=== PATIENT | female | born 1925 | race African-American/Black ===

== ENCOUNTER 2016-12-29 08:45 | Day surgery (SDC) | payer OTHER ==
[2016-12-28 16:26] VITALS: BMI 37.1
--- NOTE | 2016-12-29 06:30 | HP ---
History & Physical Update - History History: No Change - Physical Physical: No Change - Assessment Assessment: No Change - Plan Plan: No Change
[~2016-12-29 08:45] MED LIST: CYCLOPENTOLATE HCL 1% OPHTH SOLN 2 ML BOTTLE OP SCH; MOXIFLOXACIN HCL 0.5% OPHTHALMIC 3 ML BOTTLE OP SCH; PHENYLEPHRINE 2.5% OPHTH SOLN 15 ML BOTTLE OP SCH; TROPICAMIDE 1% OPHTH SOLN 15 ML BOTTLE OP SCH
[2016-12-29 09:32] VITALS: BP 159/82; PULSE 96; TEMP 97.7
[2016-12-29] MEDS ORDERED: ACETAMINOPHEN 325 MG TABLET (FP) PO PRN (10:56)
[2016-12-29] MEDS ORDERED: ONDANSETRON 4 MG/2 ML VIAL IVPUSH PRN (10:56)
[2016-12-29] MEDS ORDERED: LACTATED RINGERS SOLUTION 1,000 ML IV SCH (11:00)
== END 2016-12-29 09:44 | disposition home or self-care (01) ==
LOC: JASU-SURG 08:45
PROVIDERS: ATTEND Ophthalmology
PROC: 08DK3ZZ Extraction of Left Lens, Percutaneous Approach (ICD-10-PCS; principal; 2016-12-29)
DX: Z53.8 Procedure and treatment not carried out for other reasons (principal)

== ENCOUNTER 2017-01-19 07:19 | Day surgery (SDC) | payer OTHER ==
[2017-01-15 12:55] VITALS: BMI 37.1
--- NOTE | 2017-01-19 06:21 | HP ---
History & Physical Update - History History: No Change - Physical Physical: No Change - Assessment Assessment: No Change - Plan Plan: No Change
[~2017-01-19 07:19] MED LIST changes: -CYCLOPENTOLATE HCL 1% OPHTH SOLN 2 ML BOTTLE OP SCH; -MOXIFLOXACIN HCL 0.5% OPHTHALMIC 3 ML BOTTLE OP SCH; -PHENYLEPHRINE 2.5% OPHTH SOLN 15 ML BOTTLE OP SCH; +TOBRAMYCIN/DEXAMETHASONE OPHTH. OINTMENT 1 TUBE TP ONE; -TROPICAMIDE 1% OPHTH SOLN 15 ML BOTTLE OP SCH
[2017-01-19] MEDS ORDERED: LIDOCAINE HCL/PF 1% SDV 5ML VIAL ONE (07:24)
[2017-01-19] MEDS ORDERED: LIDOCAINE HCL/PF 2% SDV 5ML VIAL ONE (07:25)
[2017-01-19] MEDS ORDERED: TETRACAINE 0.5% OPHTH SOLN 2 ML BOTTLE ONE (07:25)
[2017-01-19] MEDS ORDERED: BUPIVACAINE HCL/PF 0.75% 10 ML VIAL ONE (07:25)
[2017-01-19] MEDS: MOXIFLOXACIN HCL 0.5% OPHTHALMIC 3 ML BOTTLE OP SCH ×3 (07:45→08:14)
[2017-01-19] MEDS: PHENYLEPHRINE 2.5% OPHTH SOLN 15 ML BOTTLE OP SCH ×3 (07:45→08:14)
[2017-01-19] MEDS: CYCLOPENTOLATE HCL 1% OPHTH SOLN 2 ML BOTTLE OP SCH ×3 (07:45→08:13)
[2017-01-19] MEDS: TROPICAMIDE 1% OPHTH SOLN 15 ML BOTTLE OP SCH ×3 (07:45→08:14)
[2017-01-19] MEDS ORDERED: TETRACAINE 0.5% OPHTH SOLN 2 ML BOTTLE OS ONE (09:24)
[2017-01-19] MEDS ORDERED: BUPIVACAINE HCL/PF 0.75% 10 ML VIAL RB ONE (09:30)
[2017-01-19] MEDS ORDERED: LIDOCAINE HCL/PF 2% SDV 5ML VIAL INF ONE (09:30)
[2017-01-19] MEDS ORDERED: POVIDONE-IODINE 5% OPHTHALMIC PREP 30 ML SOLUTION OS ONE (09:33)
[2017-01-19] MEDS ORDERED: LIDOCAINE HCL 1% PRESERVATIVE FREE - 30ML VIAL IO ONE (09:40)
[2017-01-19] MEDS ORDERED: CHONDROITIN SU A/HYALUR SOD 1 KIT IO ONE (09:40)
[2017-01-19] MEDS ORDERED: BSS (NA/CA/MG/K) BALANCED SALT SOLUTION OPHTH SOLN 15 ML BOTTLE OS ONE (09:40)
[2017-01-19] MEDS ORDERED: TRYPAN BLUE 0.5 ML DISP.SYRIN IO ONE (09:41)
[2017-01-19] MEDS ORDERED: EPINEPHrine/PF 1 MG/1 ML (1:1,000) AMPULE SQ ONE (09:45)
[2017-01-19] MEDS ORDERED: TOBRAMYCIN/DEXAMETHASONE OPHTH. OINTMENT 1 TUBE TP ONE (09:59)
[2017-01-19 12:56] VITALS: BP 145/80; PULSE 88; TEMP 97.8
--- NOTE | 2017-01-20 06:33 | OP ---
DATE OF OPERATION: 01/19/2017 SURGEON: Major Bar MD PREOPERATIVE DIAGNOSIS: Cataract, left eye. OPERATION: Phacoemulsification and intraocular lens implantation, left eye. POSTOPERATIVE DIAGNOSIS: Cataract, left eye. ANESTHESIA: Local with intravenous sedation. COMPLICATIONS: None. BLOOD LOSS: None. SPECIMEN: None. BRIEF HISTORY: The patient is an 89-year-old woman with a past medical history of hypertension, who presented with decreased vision in the left eye down to 20/40 due to dense 2+ nuclear sclerotic lens. 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 DESCRIPTION OF PROCEDURE: The patient was brought to the operating room and administered retrobulbar block after receiving intravenous sedation. She was then prepped and draped in the usual sterile fashion. Then, an eyelid speculum was inserted in the left eye, the paracentesis was made, and the anterior chamber was inflated with nonpreserved lidocaine. At this point, due to the poor visualization due to the corneal scar, it was determined to use trypan blue dye in order to stain the anterior capsule. Air, trypan blue dye, and Viscoat were injected into the eye. A groove was made in the superotemporal clear cornea which was tunneled forward with a crescent blade. The anterior chamber was entered with a 2.75 keratome. The cystotome was used to make an incision at the center of the capsule, and a continuous curvilinear capsulorrhexis was created. The lens was hydrodissected until it was found to rotate freely within the capsular bag. Phacoemulsification was then used to remove the lens in its entirety. Irrigation and aspiration were used to remove residual cortical material. The anterior chamber and capsular bag were reinflated with Provisc, and a 20.5 diopter [id number] AcrySof intraocular lens was injected into the capsular bag using the [place] injector. The lens was dialed into place using the [employer] Technologiesey hook. Irrigation and aspiration were used to remove residual viscoelastic. The wound was stromally hydrated until it was found to be watertight and the eye was in an appropriate pressure. The eyelid speculum was removed from the eye and TobraDex ointment and a patch and shield were placed over the left eye. The patient was transferred to the recovery room in stable condition and will follow up tomorrow. Abhijit [id number] MTDD
== END 2017-01-19 12:00 | disposition home or self-care (01) ==
LOC: JASU-SURG 07:19
PROVIDERS: ATTEND Ophthalmology
PROC: 08RK3JZ Replacement of Left Lens with Synthetic Substitute, Percutaneous Approach (ICD-10-PCS; principal; 2017-01-19 09:00)
DX: H25.12 Age-related nuclear cataract, left eye (principal); H17.9 Unspecified corneal scar and opacity

== ENCOUNTER 2017-03-11 00:58 | Inpatient (IN) | payer OTHER ==
[2017-03-11 01:24] VITALS: BMI 36.0
--- NOTE | 2017-03-11 02:04 | PDOC ---
History of Present Illness - General History Source: Patient <Jaycob Garcia - Last Filed: 03/11/17 06:58> - General History Source: Patient Exam Limitations: No Limitations - History of Present Illness Initial Comments: 03/11/17 02:20 The patient is a 89 year old female with significant past medical history of COPD, hypertension, diabetes who presents to the ED for elevated blood pressure. Patient reports she normally checks her blood pressure at home and within the past week she noted her blood pressure has been trending upwards from her baseline, which is usually in the 130s systolic. Today she noted her blood pressure to be in the 190s. Patient reports a sensation of a pounding pressure in her head, lightheadedness, and left arm discomfort. Denies numbness or tingling. Denies diaphoresis, chest pain, palpitations, SOB, jaw pain, nausea , or vomiting. At time of evaluation, patient states her symptoms have resolved. She also has complaints of frequency, but no urgency, dysuria, or hematuria. States her PMD was made aware of her urinary complaint and she was recently prescribed antibiotics. The patient denies fever, chills, cough, abdominal pain, and diarrhea. Allergies: NKDA Social History: No alcohol, tobacco, or drug use reported. Past Surgical History: cholecystectomy PCP: Dr. Amol Jaramillo <Tatiana Calles - Last Filed: 03/11/17 07:03> - General Chief Complaint: Blood Pressure Problem Stated Complaint: BLOOD PRESSURE PROBLEM Time Seen by Provider: 03/11/17 01:30 Past History - Past Medical History COPD: Yes Diabetes: Yes HTN: Yes Thyroid Disease: Yes - Surgical History Cholecystectomy: Yes - Psycho/Social/Smoking Cessation Hx Suicidal Ideation: No Smoking History: Never smoked Have you smoked in the past 12 months: No If you are a former smoker, when did you quit?: 30YRS AGO Information on smoking cessation initiated: No Hx Alcohol Use: No Drug/Substance Use Hx: No Substance Use Type: None Hx Substance Use Treatment: No <RadhaJaycob - Last Filed: 03/11/17 06:58> <Tatiana Calles - Last Filed: 03/11/17 07:03> - Past Medical History Allergies/Adverse Reactions: Allergies Allergy/AdvReac Type Severity Reaction Status Date / Time No Known Allergies Allergy Verified 12/28/16 16:37 Home Medications: Ambulatory Orders Aspirin Coated [Ecotrin -] 81 mg PO DAILY 12/28/16 Atorvastatin Ca [Lipitor] 40 mg PO HS 12/28/16 Levothyroxine [Synthroid -] 25 mcg PO DAILY 12/28/16 Meloxicam [Mobic (Nf) -] 15 mg PO DAILY 12/28/16 Valsartan 320 mg PO DAILY 12/28/16 Hydrochlorothiazide 25 mg PO DAILY 01/19/17 Review of Systems - Review of Systems Able to Perform ROS?: Yes Comments:: 03/11/17 02:20 CONSTITUTIONAL: Absent: fever, no chills, no fatigue EYES: Absent: visual changes ENT: Absent: ear pain, no sore throat CARDIOVASCULAR: +lightheadedness Absent: chest pain, no palpitations RESPIRATORY: Absent: cough, no SOB GI: Absent: abdominal pain, no nausea, no vomiting, no constipation, no diarrhea GENITOURINARY: +frequency Absent: dysuria, no hematuria MUSCULOSKELETAL: +left arm discomfort Absent: back pain, no arthralgia, no myalgia SKIN: Absent: rash NEURO: +headache <Tatiana Calles - Last Filed: 03/11/17 07:03> *Physical Exam - Vital Signs Last Vital Signs Temp Pulse Resp BP Pulse Ox 98.2 F 102 H 20 177/75 96 03/11/17 01:22 03/11/17 01:22 03/11/17 01:22 03/11/17 01:22 03/11/17 01:22 <Jaycob Garcia - Last Filed: 03/11/17 06:58> - Vital Signs Last Vital Signs Temp Pulse Resp BP Pulse Ox 98.2 F 102 H 20 177/75 96 03/11/17 01:22 03/11/17 01:22 03/11/17 01:22 03/11/17 01:22 03/11/17 01:22 - Physical Exam Comments: 03/11/17 02:20 GENERAL: Well-appearing, well-nourished. No apparent distress. HEENT: Normocephalic, atraumatic. PERRL, EOM intact. CARDIOVASCULAR: Normal S1, S2. Regular rate and rhythm. PULMONARY: Clear to auscultation bilaterally. ABDOMEN: Soft, non-distended, non-tender. EXTREMITIES: Normal ROM in all four extremities. No gross deformities. SKIN: Warm, dry. No rash NEUROLOGICAL: No focal neurological deficits. 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 The sulcal pattern is normal for the patient's age. Mild small vessel ischemic changes are noted. There is no bleed, mass, extra-axial fluid collection or mass effect. No skull fracture or skull lesion is identified. The visualized paranasal sinuses and mastoid air cells are clear. IMPRESSION: No evidence of acute pathology. <Tatiana Calles - Last Filed: 03/11/17 07:03> Medical Decision Making - Medical Decision Making 03/11/17 07:01 Dr. Garcia: The scribe's documentation has been prepared under my direction and personally reviewed by me in its entirery. I confirm that the note above accurately reflects all work, treatment, procedures, and medical decision making performed by me. <Jaycob Garcia - Last Filed: 03/11/17 06:58> - Medical Decision Making 03/11/17 05:[address] Sachin August who is covering for Dr. Amol Jaramillo (via answering service) Awaiting call back As per answering service, was told that Dr. August is on-call for Dr. Jaramillo. 03/11/17 05:59 Second call placed to Dr. August (via answering service) and patient's case was discussed. Dr. Auguts states that Dr. Root and Dr. Kim are covering for Dr. Jaramillo. 03/11/17 06:[address] Karrie Kim who is covering for Dr. Jaramillo (via answering service) Awaiting call back 03/11/17 06:31 Second call placed to Dr. Kim (via answering service) Awaiting call back 03/11/17 06:58 Patient's case discussed with Dr. Kim <Tatiana Calles - Last Filed: 03/11/17 07:03> *DC/Admit/Observation/Transfer - Discharge Dispostion Admit: Yes <Jaycob Garcia - Last Filed: 03/11/17 06:58> - Attestations Scribe Attestion: 03/11/17 02:21 Documentation prepared by Tatiana Calles, acting as medical staff assistant for Jaycob Garcia MD/DO. <Tatiana Calles - Last Filed: 03/11/17 07:03> Diagnosis at time of Disposition: Hyponatremia, Hypochloremia - Discharge Dispostion Condition at time of disposition: Stable - Referrals Referrals: Amol Jaramillo MD [Primary Care Provider] -
[2017-03-11 03:06] LABS: BASOPHIL 0.9 % (0-2.0); EOSINOPHIL 5.9 % (0-4.5); MCH 27.2 pg (25.7-33.7); MCHC 33.1 g/dl (32.0-36.0); MEAN CELL VOLUME 82.1 fl (80-96); MEAN PLT VOLUME 6.6 fl (7.5-11.1); PLATELET COUNT 208 K/MM3 (134-434); RDW 14.5 % (11.6-15.6); WHITE BLOOD COUNT 9.8 K/mm3 (4.0-10.0)
[2017-03-11 03:07] LABS: URINE APPEARANCE CLEAR; URINE BILIRUBIN NEGATIVE (NEGATIVE); URINE BLOOD NEGATIVE (NEGATIVE); URINE COLOR COLORLESS; URINE GLUCOSE (UA) NEGATIVE (NEGATIVE); URINE KETONE NEGATIVE (NEGATIVE); URINE LEUK ESTERASE NEGATIVE (NEGATIVE); URINE NITRITE NEGATIVE (NEGATIVE); URINE PROTEIN NEGATIVE (NEGATIVE); URINE UROBILINOGEN NEGATIVE E.U./dl (0.2-1.0)
[2017-03-11 03:22] LABS: INR 1.04 (0.82-1.09); PROTHROMBIN TIME (PATIENT) 11.4 SEC (9.98-11.88)
[2017-03-11 03:31] LABS: ALK PHOS 132 U/L (45-117); ANION GAP 5 (8-16); BILIRUBIN,TOTAL 0.5 mg/dL (0.2-1.0); CALCIUM 9.8 mg/dL (8.5-10.1); CO2 31 mmol/L (21-32); CREATININE 1.2 mg/dL (0.55-1.02); GLUCOSE,RANDOM 109 mg/dL (74-106); MAGNESIUM 1.9 mg/dL (1.8-2.4); SGOT/AST 23 U/L (15-37); SGPT/ALT 25 U/L (12-78); TOT PROT 7.8 g/dl (6.4-8.2)
[2017-03-11 03:33] LABS: TROPONIN I < 0.02 ng/ml (0.00-0.05)
[2017-03-11] MEDS ORDERED: SODIUM CHLORIDE 500 ML IV STA (06:26)
[2017-03-11 08:33] LABS: ANION GAP 10 (8-16); CALCIUM 9.6 mg/dL (8.5-10.1); CO2 26 mmol/L (21-32); GLUCOSE,RANDOM 103 mg/dL (74-106)
[2017-03-11 09:36] LABS: THYROID STIMULATING HORMONE 4.06 uIU/ml (0.358-3.74)
--- NOTE | 2017-03-11 09:55 | HP ---
Admitting History and Physical - Primary Care Physician PCP: Amol Jaramillo - Admission Chief Complaint: high BP History of Present Illness: ER HISTORY - History of Present Illness Initial Comments: 03/11/17 02:20 The patient is a 89 year old female with significant past medical history of COPD, hypertension, diabetes who presents to the ED for elevated blood pressure. Patient reports she normally checks her blood pressure at home and within the past week she noted her blood pressure has been trending upwards from her baseline, which is usually in the 130s systolic. Today she noted her blood pressure to be in the 190s. Patient reports a sensation of a pounding pressure in her head, lightheadedness, and left arm discomfort. Denies numbness or tingling. Denies diaphoresis, chest pain, palpitations, SOB, jaw pain, nausea , or vomiting. At time of evaluation, patient states her symptoms have resolved. She also has complaints of frequency, but no urgency, dysuria, or hematuria. States her PMD was made aware of her urinary complaint and she was recently prescribed antibiotics. The patient denies fever, chills, cough, abdominal pain, and diarrhea. Allergies: NKDA Social History: No alcohol, tobacco, or drug use reported. Past Surgical History: cholecystectomy PCP: Dr. Amol Jaramillo Pt examined by me in ER admitted for elevated BP-- her meds were recently changed by her PMD last month. C/O headaches and has been checking her BP at home-- elevated. Also had difficulty urinating and felt weak-- she called her PMD two days ago and he prescribed antibiotics presuming it to be UTI. No chest pain has COPD and uses O2 sometimes at home. Admits to drinking 5 - 6 bottles of 16 ounce water daily today feels well. History Source: Patient Limitations to Obtaining History: No Limitations - Past Medical History Cardiovascular: Yes: HTN Pulmonary: Yes: COPD Endocrine: Yes: Diabetes Mellitus - Smoking History Smoking history: Never smoked Have you smoked in the past 12 months: No If you are a former smoker, when did you quit?: 30YRS AGO - Alcohol/Substance Use Hx Alcohol Use: No Home Medications - Allergies Allergies/Adverse Reactions: Allergies Allergy/AdvReac Type Severity Reaction Status Date / Time No Known Allergies Allergy Verified 12/28/16 16:37 - Home Medications Home Medications: Ambulatory Orders Aspirin Coated [Ecotrin -] 81 mg PO DAILY 12/28/16 Atorvastatin Ca [Lipitor] 40 mg PO HS 12/28/16 Levothyroxine [Synthroid -] 25 mcg PO DAILY 12/28/16 Meloxicam [Mobic (Nf) -] 15 mg PO DAILY 12/28/16 Valsartan 320 mg PO DAILY 12/28/16 Hydrochlorothiazide 25 mg PO DAILY 01/19/17 Review of Systems - Review of Systems Constitutional: reports: Weakness. denies: Chills, Fever, Lethargy, Loss of Appetite Gastrointestinal: denies: Abdominal Pain Genitourinary: reports: Frequency. denies: Burning, Discharge, Dysuria, Flank Pain Neurological: reports: Headache. denies: Confusion, Dizziness Physical Examination Vital Signs: Vital Signs Temperature 97.9 F 03/11/17 07:41 Pulse Rate 83 03/11/17 07:41 Respiratory Rate 20 03/11/17 07:41 Blood Pressure 173/83 03/11/17 07:41 O2 Sat by Pulse Oximetry (%) 97 03/11/17 07:41 Constitutional: Yes: No Distress, Calm Cardiovascular: Yes: Regular Rate and Rhythm Respiratory: Yes: Diminished, Rales Gastrointestinal: Yes: Normal Bowel Sounds, Soft. No: Distention, Tenderness Edema: Yes Edema: LLE: 1+, RLE: 1+ Psychiatric: Yes: Alert, Oriented Labs: CBC, BMP 03/11/17 07:54 Imaging - Results Chest X-ray: Image Reviewed (no infiltrates or congestion) EKG: Image Reviewed (NSR) Problem List - Problems (1) Hypochloremia Code(s): E87.8 - OTH DISORDERS OF ELECTROLYTE AND FLUID BALANCE, NEC (2) Hyponatremia Code(s): E87.1 - HYPO-OSMOLALITY AND HYPONATREMIA (3) Uncontrolled hypertension Code(s): I10 - ESSENTIAL (PRIMARY) HYPERTENSION Assessment/Plan PLAN Sodium low due to hypervolemia fluid restriction check urine osmolarity check TSH , free T 4 repeat Sodium renal consult Monitor BP-- continue with meds. will adjust accordingly DVT prophylaxis-- Heparin sc
[2017-03-11] MEDS: ASPIRIN COATED 81 MG TABLET.EC PO SCH (10:43)
[2017-03-11] MEDS: VALSARTAN 160 MG TABLET (UD) PO SCH (10:43)
[2017-03-11] MEDS: LEVOTHYROXINE NA 25 MCG TABLET (FP) PO SCH (10:44)
[2017-03-11] MEDS: NIFEdipine E.R. 30 MG TABLET (FP) PO SCH (11:07)
--- NOTE | 2017-03-11 12:24 | EKG ---
Test Reason : Blood Pressure : / mmHG Vent. Rate : 068 BPM Atrial Rate : 068 BPM P-R Int : 166 ms QRS Dur : 094 ms QT Int : 388 ms P-R-T Axes : 054 007 047 degrees QTc Int : 412 ms NORMAL SINUS RHYTHM NORMAL ECG NO PREVIOUS ECGS AVAILABLE Confirmed by MELVIN PAULA MD ([id number]) on 03/11/2017 12:24:19 PM Referred By: Confirmed By:MELVIN PAULA MD
--- NOTE | 2017-03-11 21:59 | CONSULT ---
Consult Consult Specialty:: Nephrology Reason for Consultation:: HTN and hyponatremia - History of Present Illness Chief Complaint: presented for elevated blood pressure History of Present Illness: Pt is an 89 year old female with pmhx of HTN, COPD and DM who presents to the ER with elevated blood pressure. She says she checks her blood pressure regularly and it usually runs in velma 130s systolic. She was getting readings in the 190s and she came in. She did feel palpitations and headache. She was found to be hyponatremic and I was called to evaluate her. I saw her earlier today in the ER. At the time she said she felt better. She says she does drink "alot" of water but could not quantify. She had dysuria and was given antibiotics but does not know the name. Pt is on meloxicam and HCTZ. - History Source History Provided By: Patient, Medical Record - Past Medical History Cardio/Vascular: Yes: HTN Pulmonary: Yes: COPD Endocrine: Yes: Diabetes Mellitus - Alcohol/Substance Use Hx Alcohol Use: No - Smoking History Smoking history: Never smoked Have you smoked in the past 12 months: No If you are a former smoker, when did you quit?: 30YRS AGO Home Medications - Allergies Allergies/Adverse Reactions: Allergies Allergy/AdvReac Type Severity Reaction Status Date / Time No Known Allergies Allergy Verified 12/28/16 16:37 - Home Medications Home Medications: Ambulatory Orders Aspirin Coated [Ecotrin -] 81 mg PO DAILY 12/28/16 Atorvastatin Ca [Lipitor] 40 mg PO HS 12/28/16 Levothyroxine [Synthroid -] 25 mcg PO DAILY 12/28/16 Meloxicam [Mobic (Nf) -] 15 mg PO DAILY 12/28/16 Valsartan 320 mg PO DAILY 12/28/16 Hydrochlorothiazide 25 mg PO DAILY 01/19/17 Family Disease History - Family Disease History Family History: Denies Review of Systems - Review of Systems Constitutional: reports: Malaise Eyes: reports: No Symptoms HENT: reports: No Symptoms Neck: reports: No Symptoms Cardiovascular: reports: Other (elevated blood pressure) Respiratory: reports: No Symptoms Gastrointestinal: reports: No Symptoms Genitourinary: reports: Dysuria Musculoskeletal: reports: No Symptoms Integumentary: reports: No Symptoms Neurological: reports: Headache Endocrine: reports: No Symptoms Hematology/Lymphatic: reports: No Symptoms Physical Exam Vital Signs: Vital Signs Temperature 97.6 F 03/11/17 18:00 Pulse Rate 94 H 03/11/17 18:00 Respiratory Rate 20 03/11/17 18:00 Blood Pressure 163/94 03/11/17 18:00 O2 Sat by Pulse Oximetry (%) 97 03/11/17 10:46 Constitutional: Yes: Calm Eyes: Yes: Conjunctiva Clear HENT: Yes: Atraumatic Neck: Yes: Supple Cardiovascular: Yes: S1, S2 Respiratory: Yes: CTA Bilaterally Gastrointestinal: Yes: Normal Bowel Sounds, Soft Renal/: Yes: WNL Musculoskeletal: Yes: WNL Edema: Yes Edema: LLE: 1+, RLE: 1+ Neurological: Yes: Oriented Psychiatric: Yes: Oriented Labs: CBC, BMP 03/11/17 07:54 Laboratory Tests 03/11/17 03/11/17 03/11/17 02:59 02:59 02:59 WBC 9.8 Hgb 12.2 Plt Count 208 Sodium 125 L Potassium 4.9 Chloride 89 L Carbon Dioxide 31 Anion Gap 5 L BUN 28 H Creatinine 1.2 H Random Glucose 109 H Alkaline Phosphatase 132 H Urine Color Colorless Urine Appearance Clear Urine pH 5.0 Ur Specific Benedict <= 1.005 Urine Protein Negative Urine Glucose (UA) Negative Urine Ketones Negative Urine Blood Negative Urine Nitrite Negative Urine Bilirubin Negative Urine Urobilinogen Negative Ur Leukocyte Esterase Negative 03/11/17 07:54 WBC Hgb Plt Count Sodium 129 L Potassium 4.4 Chloride 93 L Carbon Dioxide 26 Anion Gap 10 BUN 25 H Creatinine 1.0 Random Glucose Alkaline Phosphatase Urine Color Urine Appearance Urine pH Ur Specific Benedict Urine Protein Urine Glucose (UA) Urine Ketones Urine Blood Urine Nitrite Urine Bilirubin Urine Urobilinogen Ur Leukocyte Esterase Imaging - Results Chest X-ray: Report Reviewed Cat Scan: Report Reviewed Problem List - Problems (1) Hyponatremia Code(s): E87.1 - HYPO-OSMOLALITY AND HYPONATREMIA (2) Uncontrolled hypertension Code(s): I10 - ESSENTIAL (PRIMARY) HYPERTENSION (3) Diabetes mellitus Code(s): E11.9 - TYPE 2 DIABETES MELLITUS WITHOUT COMPLICATIONS (4) COPD (chronic obstructive pulmonary disease) Code(s): J44.9 - CHRONIC OBSTRUCTIVE PULMONARY DISEASE, UNSPECIFIED Assessment/Plan Current Medications Generic Name Dose Route Start Last Admin Trade Name Freq PRN Reason Stop Dose Admin Aspirin 81 mg 03/11/17 10:00 03/11/17 10:43 Ecotrin - PO 81 mg DAILY KENNETH Administration Atorvastatin Calcium 40 mg 03/11/17 22:00 Lipitor - PO HS KENNETH Levothyroxine Sodium 25 mcg 03/11/17 10:00 03/11/17 10:44 Synthroid - PO 25 mcg DAILY@0700 KENNETH Administration Nifedipine 30 mg 03/11/17 11:00 03/11/17 11:07 Procardia Xl - PO 30 mg DAILY KENNETH Administration Valsartan 320 mg 03/11/17 10:00 03/11/17 10:43 Diovan - PO 320 mg DAILY KENNETH Administration Selected Entries 03/11/17 03/11/17 03/11/17 10:46 12:20 14:53 Blood Pressure 159/79 161/82 151/82 03/11/17 18:00 Blood Pressure 163/94 Impression 1. HTN 2. hyponatremia 3. DM 4. hypothyroidism 5. COPD 6. hyperlipidemia 7. azotemia improving Plan - recommend stopping hctz and meloxicam. The thiazide can contribute to the hyponatremia and the meloxicam to the htn - cont valsartan - cont nifedpine and titrate up as tolerated - avoid nsaids - sodium is improving - repeat bmp in am - check plasma and urine osm - check tsh and cortisol - will follow pt Dr Hernandes
[2017-03-11] MEDS: ATORVASTATIN CA 40 MG TABLET (FP) PO SCH (23:10)
[2017-03-12] MEDS: LEVOTHYROXINE NA 25 MCG TABLET (FP) PO SCH (06:50)
[2017-03-12 07:55] LABS: MCH 27.3 pg (25.7-33.7); MCHC 33.5 g/dl (32.0-36.0); MEAN CELL VOLUME 81.6 fl (80-96); MEAN PLT VOLUME 6.7 fl (7.5-11.1); PLATELET COUNT 183 K/MM3 (134-434); RDW 14.6 % (11.6-15.6); WHITE BLOOD COUNT 8.4 K/mm3 (4.0-10.0)
[2017-03-12 08:06] LABS: CALCIUM 9.6 mg/dL (8.5-10.1)
[2017-03-12 08:20] LABS: ALBUMIN 3.6 g/dl (3.4-5.0); ALK PHOS 122 U/L (45-117); ANION GAP 8 (8-16); BILIRUBIN,TOTAL 0.6 mg/dL (0.2-1.0); CO2 28 mmol/L (21-32); GLUCOSE,RANDOM 91 mg/dL (74-106); SGOT/AST 22 U/L (15-37); SGPT/ALT 21 U/L (12-78); TOT PROT 6.9 g/dl (6.4-8.2)
--- NOTE | 2017-03-12 08:54 | DS ---
Physical Examination Vital Signs: Vital Signs Temperature 98 F 03/12/17 07:00 Pulse Rate 91 H 03/12/17 07:00 Respiratory Rate 18 03/12/17 07:00 Blood Pressure 148/90 03/12/17 07:00 O2 Sat by Pulse Oximetry (%) 97 03/11/17 21:00 Labs: CBC, BMP 03/12/17 06:25 03/12/17 06:25 <Nayely Root - Last Filed: 03/12/17 08:54> Vital Signs: Vital Signs Temperature 98 F 03/12/17 07:00 Pulse Rate 91 H 03/12/17 07:00 Respiratory Rate 18 03/12/17 07:00 Blood Pressure 148/90 03/12/17 07:00 O2 Sat by Pulse Oximetry (%) 97 03/11/17 21:00 Findings/Remarks: Patient seen and examined by me. Chart reviewed. Labs: CBC, BMP 03/12/17 06:25 03/12/17 06:25 <Oxana Francois - Last Filed: 03/12/17 10:19> Discharge Summary Reason For Visit: HYPONATREMIA/HYPOCHOLREMIA Current Active Problems COPD (chronic obstructive pulmonary disease) (Acute) Diabetes mellitus (Acute) Hypochloremia (Acute) Hyponatremia (Acute) Uncontrolled hypertension (Acute) - Home Medications Comprehensive Discharge Medication List: Ambulatory Orders Aspirin Coated [Ecotrin -] 81 mg PO DAILY 12/28/16 Atorvastatin Ca [Lipitor] 40 mg PO HS 12/28/16 Levothyroxine [Synthroid -] 25 mcg PO DAILY 12/28/16 Valsartan 320 mg PO DAILY 12/28/16 Nifedipine ER [Procardia XL -] 30 mg PO DAILY #30 amp 03/12/17 <Nayely Root - Last Filed: 03/12/17 08:54> Current Active Problems COPD (chronic obstructive pulmonary disease) (Acute) Diabetes mellitus (Acute) Hypochloremia (Acute) Hyponatremia (Acute) Uncontrolled hypertension (Acute) Hospital Course: Documentation prepared by Oxana Francois, acting as a clinical medical assistant for Nayely Root MD - Home Medications Comprehensive Discharge Medication List: Ambulatory Orders Aspirin Coated [Ecotrin -] 81 mg PO DAILY 12/28/16 Atorvastatin Ca [Lipitor] 40 mg PO HS 12/28/16 Levothyroxine [Synthroid -] 25 mcg PO DAILY 12/28/16 Valsartan 320 mg PO DAILY 12/28/16 Nifedipine ER [Procardia XL -] 30 mg PO DAILY #30 amp 03/12/17 <Oxana Francois - Last Filed: 03/12/17 10:19> Condition: Stable - Instructions Referrals: Amol Jaramillo MD [Primary Care Provider] -
[2017-03-12] MEDS: NIFEdipine E.R. 30 MG TABLET (FP) PO SCH (10:20)
[2017-03-12] MEDS: VALSARTAN 160 MG TABLET (UD) PO SCH (10:20)
[2017-03-12] MEDS: ASPIRIN COATED 81 MG TABLET.EC PO SCH (10:21)
[2017-03-12] MEDS ORDERED: NIFEdipine E.R. 30 MG TABLET (FP) PO SCH (11:04)
--- NOTE | 2017-03-12 11:04 | PN ---
Progress Note (short form) - Note Progress Note: SUBJECTIVE: Patient seen and examined. Chart reviewed. Feels better. No complaints today. OBJECTIVE: Vital Signs 03/12/17 03/12/17 07:00 10:00 Temperature 98 F Pulse Rate 91 H 80 Respiratory 18 18 Rate Blood Pressure 148/90 170/101 Intake & Output 03/11/17 03/12/17 03/12/17 23:59 07:59 15:59 Intake Total 0 0 Balance 0 0 Intake: IV 0 0 rac 0 0 Other: Voiding Method Toilet Toilet Active Medications Aspirin (Ecotrin -) 81 mg PO DAILY [facility] Last Admin: 03/12/17 10:21 Dose: 81 mg Atorvastatin Calcium (Lipitor -) 40 mg PO HS [facility] Last Admin: 03/11/17 23:10 Dose: 40 mg Levothyroxine Sodium (Synthroid -) 25 mcg PO DAILY@0700 [facility] Last Admin: 03/12/17 06:50 Dose: 25 mcg Nifedipine (Procardia Xl -) 60 mg PO DAILY [facility] Valsartan (Diovan -) 320 mg PO DAILY [facility] Last Admin: 03/12/17 10:20 Dose: 320 mg CBC, BMP 03/12/17 06:25 03/12/17 06:25 Laboratory Results - last 24 hr 03/11/17 03/12/17 03/12/17 20:02 00:59 00:59 WBC RBC Hgb Hct MCV MCHC RDW Plt Count MPV Sodium Potassium Chloride Carbon Dioxide Anion Gap BUN Creatinine Creat Clearance w eGFR POC Glucometer Random Glucose Calcium Total Bilirubin AST ALT Alkaline Phosphatase Total Protein Albumin TSH Free T4 1.06 Urine Osmolality 265 L Ur Random Sodium 40 Ur Random Potassium 22.7 Ur Random Chloride 44 03/12/17 03/12/17 03/12/17 06:25 06:25 06:51 WBC 8.4 RBC 4.34 Hgb 11.9 Hct 35.4 MCV 81.6 MCHC 33.5 RDW 14.6 Plt Count 183 MPV 6.7 L Sodium 130 L Potassium 4.3 Chloride 94 L Carbon Dioxide 28 Anion Gap 8 BUN 25 H Creatinine 1.0 Creat Clearance w eGFR 52.20 POC Glucometer 99 Random Glucose 91 Calcium 9.6 Total Bilirubin 0.6 AST 22 ALT 21 Alkaline Phosphatase 122 H Total Protein 6.9 Albumin 3.6 TSH 3.40 D Free T4 Urine Osmolality Ur Random Sodium Ur Random Potassium Ur Random Chloride PHYSICAL EXAMINATION: Constitutional: Yes: No Distress, Calm Cardiovascular: Yes: Regular Rate and Rhythm Respiratory: Yes: Diminished at bases. Gastrointestinal: Yes: Normal Bowel Sounds, Soft. No: Distention, Tenderness Edema: Yes Edema: LLE: 1+, RLE: 1+ Psychiatric: Yes: Alert, Oriented Problem List - Problems (1) Hypochloremia Code(s): E87.8 - OTH DISORDERS OF ELECTROLYTE AND FLUID BALANCE, NEC (2) Hyponatremia Code(s): E87.1 - HYPO-OSMOLALITY AND HYPONATREMIA (3) Uncontrolled hypertension Code(s): I10 - ESSENTIAL (PRIMARY) HYPERTENSION ASSESSMENT & PLAN: - Clinically better. - Sodium improved. - Blood pressure very elevated today. - Will increase Procardia. - Monitor. - Check BMP tomorrow. - Anticipate discharge tomorrow, if blood pressure is better as well as sodium improved. - I also discussed with Dr. Hernandes who agrees with the plan. Documentation prepared by Oxana Francois, acting as a ophthalmic medical technologist for Nayely Root MD
--- NOTE | 2017-03-12 11:29 | PN ---
Progress Note, Physician History of Present Illness: Pt seen and examined at bedside. She is awake and alert. She says she feels better today. She denies chest pain or shortness of breath. - Current Medication List Current Medications: Active Medications Aspirin (Ecotrin -) 81 mg PO DAILY [facility] Last Admin: 03/12/17 10:21 Dose: 81 mg Atorvastatin Calcium (Lipitor -) 40 mg PO HS [facility] Last Admin: 03/11/17 23:10 Dose: 40 mg Levothyroxine Sodium (Synthroid -) 25 mcg PO DAILY@0700 [facility] Last Admin: 03/12/17 06:50 Dose: 25 mcg Nifedipine (Procardia Xl -) 60 mg PO DAILY [facility] Valsartan (Diovan -) 320 mg PO DAILY [facility] Last Admin: 03/12/17 10:20 Dose: 320 mg - Objective Vital Signs: Vital Signs Temperature 98 F 03/12/17 07:00 Pulse Rate 80 03/12/17 10:00 Respiratory Rate 18 03/12/17 10:00 Blood Pressure 170/101 03/12/17 10:00 O2 Sat by Pulse Oximetry (%) 97 03/11/17 21:00 Constitutional: Yes: Calm Eyes: Yes: Conjunctiva Clear HENT: Yes: Atraumatic Neck: Yes: Supple Cardiovascular: Yes: S1, S2 Respiratory: Yes: CTA Bilaterally Gastrointestinal: Yes: Normal Bowel Sounds, Soft, Abdomen, Obese Genitourinary: Yes: WNL Musculoskeletal: Yes: WNL Edema: No Integumentary: Yes: WNL Neurological: Yes: Oriented Psychiatric: Yes: Oriented Labs: CBC, BMP 03/12/17 06:25 03/12/17 06:25 INR, PTT INR 1.04 (0.82-1.09) 03/11/17 02:59 Problem List - Problems (1) Hyponatremia Code(s): E87.1 - HYPO-OSMOLALITY AND HYPONATREMIA (2) Uncontrolled hypertension Code(s): I10 - ESSENTIAL (PRIMARY) HYPERTENSION (3) Diabetes mellitus Code(s): E11.9 - TYPE 2 DIABETES MELLITUS WITHOUT COMPLICATIONS (4) COPD (chronic obstructive pulmonary disease) Code(s): J44.9 - CHRONIC OBSTRUCTIVE PULMONARY DISEASE, UNSPECIFIED Assessment/Plan Current Medications Generic Name Dose Route Start Last Admin Trade Name Freq PRN Reason Stop Dose Admin Aspirin 81 mg 03/11/17 10:00 03/12/17 10:21 Ecotrin - PO 81 mg DAILY [facility] Administration Atorvastatin Calcium 40 mg 03/11/17 22:00 03/11/17 23:10 Lipitor - PO 40 mg HS [facility] Administration Levothyroxine Sodium 25 mcg 03/11/17 10:00 03/12/17 06:50 Synthroid - PO 25 mcg DAILY@0700 [facility] Administration Nifedipine 60 mg 03/12/17 11:04 Procardia Xl - PO DAILY [facility] Valsartan 320 mg 03/11/17 10:00 03/12/17 10:20 Diovan - PO 320 mg DAILY [facility] Administration Laboratory Tests 03/12/17 03/12/17 03/12/17 00:59 00:59 06:25 Sodium 130 L Serum Osmolality TSH 3.40 D Cortisol AM Sample Urine Osmolality 265 L Ur Random Sodium 40 03/12/17 03/12/17 06:25 06:25 Sodium Serum Osmolality 272 L TSH Cortisol AM Sample Pending Urine Osmolality Ur Random Sodium Impression 1. HTN 2. hyponatremia 3. DM 4. hypothyroidism 5. COPD 6. hyperlipidemia 7. azotemia improving Plan - BP is elevated this morning, repeat after am meds and if elevated increase dose of Nifedipine - hyponatremia likely from hctz and excess water intake - restrict free water - sodium mildly improved - would not restart meloxicam - repeat bmp in am - follow up cortisol - will follow pt Dr Hernandes
[2017-03-12] MEDS: ATORVASTATIN CA 40 MG TABLET (FP) PO SCH (23:03)
[2017-03-13 05:30] VITALS: TEMP 98
[2017-03-13] MEDS: LEVOTHYROXINE NA 25 MCG TABLET (FP) PO SCH (06:52)
[2017-03-13] MEDS: VALSARTAN 160 MG TABLET (UD) PO SCH (09:02)
[2017-03-13] MEDS: ASPIRIN COATED 81 MG TABLET.EC PO SCH (09:02)
[2017-03-13 09:13] LABS: ANION GAP 8 (8-16); CALCIUM 9.3 mg/dL (8.5-10.1); CO2 32 mmol/L (21-32); CREATININE 1.1 mg/dL (0.55-1.02); GLUCOSE,RANDOM 103 mg/dL (74-106)
--- NOTE | 2017-03-13 11:58 | PN ---
Progress Note, Physician History of Present Illness: Renal F/U Pt in no distress and denies any complaints No N/V or diarrhea Serum Na higher offf the HCTZ Cortisol level wnl - Current Medication List Current Medications: Active Medications Aspirin (Ecotrin -) 81 mg PO DAILY [facility] Last Admin: 03/13/17 09:02 Dose: 81 mg Atorvastatin Calcium (Lipitor -) 40 mg PO HS [facility] Last Admin: 03/12/17 23:03 Dose: 40 mg Levothyroxine Sodium (Synthroid -) 25 mcg PO DAILY@0700 [facility] Last Admin: 03/13/17 06:52 Dose: 25 mcg Nifedipine (Procardia Xl -) 60 mg PO DAILY [facility] Last Admin: 03/13/17 09:02 Dose: 60 mg Valsartan (Diovan -) 320 mg PO DAILY [facility] Last Admin: 03/13/17 09:02 Dose: 320 mg - Objective Vital Signs: Vital Signs Temperature 98 F 03/12/17 22:00 Pulse Rate 100 H 03/13/17 08:59 Respiratory Rate 18 03/13/17 08:59 Blood Pressure 150/89 03/13/17 08:59 O2 Sat by Pulse Oximetry (%) 97 03/13/17 09:00 Constitutional: Yes: No Distress Cardiovascular: Yes: S1, S2 Respiratory: Yes: CTA Bilaterally Gastrointestinal: Yes: Soft. No: Tenderness, Rebound Edema: LLE: Trace, RLE: Trace Labs: CBC, BMP 03/12/17 06:25 03/13/17 08:30 INR, PTT INR 1.04 (0.82-1.09) 03/11/17 02:59 Assessment/Plan Impression 1. HTN 2. Azotemia and hyponatremia improved 3. DM 4. Hypothyroidism 5. COPD 6. hyperlipidemia Plan - Increase the CCB if BP remains elevated and continue with the ARB for now - To remain off the HCTZ and NSAID - Restrict free water - Repeat bmp in am Dr Dumont
--- NOTE | 2017-03-13 12:30 | DS ---
Physical Examination Vital Signs: Vital Signs Temperature 98 F 03/12/17 22:00 Pulse Rate 92 H 03/13/17 12:12 Respiratory Rate 18 03/13/17 12:12 Blood Pressure 160/89 03/13/17 12:12 O2 Sat by Pulse Oximetry (%) 97 03/13/17 09:00 Findings/Remarks: feels well. wants to go home. denies any pain. bp better Constitutional: Yes: No Distress, Calm Eyes: Yes: Conjunctiva Clear Neck: Yes: Supple Cardiovascular: Yes: Regular Rate and Rhythm Respiratory: Yes: CTA Bilaterally Gastrointestinal: Yes: Soft Edema: No Neurological: Yes: Alert Labs: CBC, BMP 03/12/17 06:25 03/13/17 08:30 Discharge Summary Reason For Visit: HYPONATREMIA/HYPOCHOLREMIA Current Active Problems COPD (chronic obstructive pulmonary disease) (Acute) Diabetes mellitus (Acute) Hypochloremia (Acute) Hyponatremia (Acute) Uncontrolled hypertension (Acute) Hospital Course: The patient is a 89 year old female with significant past medical history of COPD, hypertension, diabetes who presents to the ED for elevated blood pressure pt also found to have hyponatremic pt treated with fluid restriction meds adjusted hctz d/maurilio sodium better bp better but slightly elevated nifedipine increased yesterday pt wants to go home will d/c home today pt advised to follow with her pmd Dr. Jaramillo in 3- 4 days. pt in agreement. meds reconciled. time spend in planning discharge/ documenting/ examining and co ordationg care- 35 min discussed with nursing staff also. Condition: Stable - Instructions Referrals: Amol Jaramillo MD [Primary Care Provider] - Disposition: HOME - Home Medications Comprehensive Discharge Medication List: Ambulatory Orders Aspirin Coated [Ecotrin -] 81 mg PO DAILY 12/28/16 Atorvastatin Ca [Lipitor] 40 mg PO HS 12/28/16 Levothyroxine [Synthroid -] 25 mcg PO DAILY 12/28/16 Valsartan 320 mg PO DAILY 12/28/16 Nifedipine ER [Procardia XL -] 60 mg PO DAILY #30 amp 03/13/17
[2017-03-13 12:41] VITALS: BP 160/90; PULSE 91
== END 2017-03-13 14:21 | disposition home health service (06) | DRG 641 ==
LOC: JER 00:58 → JERBED 07:01 → J5S 18:23
PROVIDERS: ADMIT Internal Medicine; ATTEND Internal Medicine
DX: E87.1 Hypo-osmolality and hyponatremia (principal); J44.9 Chronic obstructive pulmonary disease, unspecified; E11.9 Type 2 diabetes mellitus without complications; E87.8 Other disorders of electrolyte and fluid balance, not elsewhere classified; E87.79 Other fluid overload
CPT/HCPCS: 36415; 70450-TC; 71010-TC; 80048; 80053; 81003; 82436; 82533; 82550; 82553; 83735; 83880; 83930; 83935; 84133; 84300; 84439; 84443; 84484; 85025; 85027; 85610; 86850; 86900; 86901; 87077; 87086; 93005; 93010; 99285-25